=== PATIENT | male | born 1950 | race Hispanic/Latino ===

== ENCOUNTER 2016-09-18 09:10 | Day surgery (SDC) | payer OTHER ==
[~2016-09-18] VITALS: Ht 164.5 cm; Wt 90.0 kg
[~2016-09-18 09:10] MED LIST: ACYC400T2 PO; MELO-259 PO; Sodium Chloride LOK Flush 10 mL Syringe IV PRN; fentaNYL-PF 50 mCg/mL 2 mL Inj IVPUSH PRN
[2016-09-18 10:31] VITALS: BP 129/88; PULSE 85; RESP 17; O2SAT 88
[2016-09-18] MEDS ORDERED: ACYC200C PO (10:34)
[2016-09-18] MEDS: 0.9% Sodium Chloride 1,000 ML IV PRN ×2 (11:38→11:56)
--- NOTE | 2016-09-18 11:55 | PCM.ENDCOL ---
Colonoscopy Date of Service: Sep 18, 2016 Physician Garett Moise MD Indication for Procedure Screening colon cancer Post Procedure Dx & Findings: Polyp hemorrhoids Procedure Colonoscopy Prep adequate Withdrawal 13 minutes PROCEDURE IN DETAIL: After unremarkable rectal examination the Olympus video colonoscope was inserted into patient's anal canal since the cecum. Landmarks were identified including the ileocecal valve and appendiceal orifice. Scope was withdrawn systematically. The mucosa of the cecum, ascending, transverse, descending, sigmoid, rectal mucosa lined with whitish, pink, smooth, glistening, normal-appearing mucosa, normal fine branching, underlying vascularity, normal haustra. The patient tolerated procedure and was transported to observation area. In the ascending colon, there was a 1 mm polyp which was resected completely using cold forceps. In the transverse colon there was a 1 mm polyp which was resected completely using cold forceps. In the rectum, there were 3 one mm polyps which were resected completely using cold forceps. Also in the rectum there was a 2-3 mm polyp which was resected completely using cold snare. Retroflexion was done which showed hemorrhoids. Also patient that there was a needle injection done in the rectum, there was a small scar tissue that I saw. This was above the dentate line. Anal canal was inspected carefully on the way out and mild hemorrhoids noted. Impression Polyps 5 status post complete removal Hemorrhoids Recommendation Repeat colonoscopy 3 years Presedation Assessment Risks and Benefits Informed consent was obtained from the patient after all risks and benefits including but not limited to drug reaction, infection, pain, bleeding, perforation, as well as alternatives were discussed. Patient monitoring Continuous pulse oximetry, cardiac monitoring, blood pressure monitoring, IV access, and oxygen at 2L per nasal cannula. Periprocedural Fentanyl: Fentanyl 75mcg Incrementally Midazolam: Midazolam 3mg Incrementally Complications There were no periprocedural complications identified. Post Procedure Plan Post Procedure Recommendations 1. Restrict activities today. 2. Resume normal activities in the morning. 3. Resume medications. 4. Patient informed of normal post procedure side effects as bloating, drowsiness, blood streaking in the stool. 5. average risk CRCS. If colon polyps come back as: -Hyperplastic- can repeat colonoscopy in 10 years -Tubular adenoma- repeat colonoscopy in 5 years -Tubulovillous/villous adenoma- repeat colonoscopy in 3 years -If any dysplasia- return to clinic as soon as possible 6. Please don't hesitate to call me with any questions. Garett Moise MD Sep 18, 2016 11:55
[2016-09-18 12:00] VITALS: BP 105/72; PULSE 65; RESP 16; O2SAT 98
[2016-09-18 12:10] VITALS: BP 99/62; PULSE 63; RESP 16; O2SAT 94
[2016-09-18 12:20] VITALS: BP 93/61; PULSE 65; RESP 16; O2SAT 95
[2016-09-18 12:30] VITALS: BP 96/65; PULSE 63; RESP 16; O2SAT 95
[2016-09-18 12:40] VITALS: BP 112/80; PULSE 69; RESP 16; O2SAT 98
--- NOTE | 2016-09-19 13:31 | PATH ---
SURGICAL PATHOLOGY Attending Physician:Garett Moise M.D. CASE STATUS: Signed Out PATIENT NAME: MANJU BRIGGS PID: [id number] : 1950 DATE COLLECTED:09/18/2016 00:00 SPECIMEN: 1: Colon, Biopsy 2: Colon, Biopsy 3: Rectum, Biopsy CLINICAL HISTORY: SCREENING COLON POLYPS 1). ASCENDING COLON POLYP 2). TRANSVERSE COLON POLYP 3). RECTAL POLYPS X4 FINAL DIAGNOSIS: 1.ASCENDING COLON POLYP: SESSILE SERRATED ADENOMA. 2.TRANSVERSE COLON POLYP: TUBULAR ADENOMA. 3.RECTAL POLYPS: HYPERPLASTIC POLYP INVOLVING MULTIPLE BIOPSY FRAGMENTS. ICD10 CODE D12.3 GROSS DESCRIPTION: The specimen is received in three formalin filled containers labeled with the patient's name. 1). The specimen is sublabeled "ascending colon polyp" and consists of a 0.3 x 0.2 x 0.2 CM portion of tissue which is entirely submitted in cassette 1A. 2). The specimen is sublabeled "transverse colon polyp" and consists of a 0.3 x 0.3 x 0.3 CM portion of tissue which is entirely submitted in cassette 2A. 3). The specimen is sublabeled "rectal polyps" and consists of 5 portions of tissue which aggregate to 0.4 x 0.4 x 0.3 CM. Specimen is entirely submitted in cassette 3A. 09/19/2016 [facility] MICRO DESCRIPTION: See diagnosis. ICD-9 CODES: CPT CODES: 1: 56959 2: 34053 3: 50301 Electronically Signed Out Tom Bhatia MD [facility] Pathology [facility] [address], [place] [address] Technical component performed at [facility], [facility] [address], [address]
== END 2016-09-18 23:59 | disposition home or self-care (01) ==
LOC: END 09:10
PROVIDERS: ATTEND Internal Medicine
DX: Z12.11 Encounter for screening for malignant neoplasm of colon (principal); D12.2 Benign neoplasm of ascending colon; D12.3 Benign neoplasm of transverse colon; K62.1 Rectal polyp; K64.8 Other hemorrhoids; Z79.899 Other long term (current) drug therapy; Z87.891 Personal history of nicotine dependence